=== PATIENT | female | born 1985 | race American Indian/Alaskan Native ===

== ENCOUNTER 2017-05-15 11:59 | Inpatient (IN) | payer MEDICAID ==
[2017-05-15] MEDS ORDERED: Sodium Chloride 0.9% 10 ML Syringe FLUSH PRN (12:52)
[2017-05-15] MEDS ORDERED: Sodium Chloride 0.9% 1,000 ML IV STA (12:52)
[2017-05-15] MEDS ORDERED: HYDROmorphone 0.5 MG/0.5 ML Syringe IVPUSH ONE (12:54)
[2017-05-15] MEDS ORDERED: Ondansetron 4 MG/2 ML SDV IVPUSH ONE (12:54)
--- NOTE | 2017-05-15 12:56 | EDM.PDOC ---
ED HPI GENERAL MEDICAL PROBLEM - General Chief Complaint: Abdominal Pain Stated Complaint: STOMACH PAINS Time Seen by Provider: 05/15/17 12:49 Source of Information: Reports: Patient, RN Notes Reviewed History Limitations: Reports: No Limitations - History of Present Illness INITIAL COMMENTS - FREE TEXT/NARRATIVE: 32-year-old female presents emergency department day complaint of abdominal pain , she states the pain started about 12 hours ago has been constant nature she still passing gas, denies any relationship to food does have a history of section 2 has not tried anything for the pain abdominal Pain Score (Numeric/FACES): 7 - Related Data Allergies Allergy/AdvReac Type Severity Reaction Status Date / Time amoxicillin Allergy Hives Verified 05/15/17 12:35 Home Meds: Home Meds NK [No Known Home Meds] 05/15/17 [History] Past Medical History - Past Surgical History Female Surgical History: Reports: Section Social & Family History - Tobacco Use Smoking Status *Q: Current Every Day Smoker Years of Tobacco use: 12 Packs/Tins Daily: 0.5 - Recreational Drug Use Recreational Drug Use: No ED ROS GENERAL - Review of Systems Review Of Systems: See Below Constitutional: Denies: Fever, Chills HEENT: Reports: No Symptoms Respiratory: Reports: No Symptoms Cardiovascular: Reports: No Symptoms GI/Abdominal: Reports: Abdominal Pain, Flatus, Nausea. Denies: Constipation, Diarrhea, Vomiting : Reports: No Symptoms Musculoskeletal: Reports: No Symptoms Skin: Reports: No Symptoms Neurological: Reports: No Symptoms ED EXAM, GI/ABD - Physical Exam Exam: See Below Exam Limited By: No Limitations General Appearance: Alert, WD/WN, No Apparent Distress Respiratory/Chest: No Respiratory Distress, Lungs Clear, Normal Breath Sounds, No Accessory Muscle Use Cardiovascular: Regular Rate, Rhythm, No Murmur GI/Abdominal Exam: Normal Bowel Sounds (I), Soft, Tender (Tender right lower quadrant). No: Guarding, Rigid, Rebound Course - Vital Signs Last Recorded V/S: Last Vital Signs Temp 97.9 F 05/15/17 12:37 Pulse 86 05/15/17 14:31 Resp 12 05/15/17 14:31 BP 97/56 L 05/15/17 14:31 Pulse Ox 96 05/15/17 14:31 - Orders/Labs/Meds Orders: Active Orders 24 hr Category Date Time Status Peripheral IV Care [RC] . DIRECTED Care 05/15/17 12:53 Active Abdomen Pelvis w Cont [CT] Urgent Exams 05/15/17 12:52 Taken Sodium Chloride 0.9% [Normal Saline] 1,000 ml Med 05/15/17 12:52 Active IV .BOLUS Sodium Chloride 0.9% [Saline Flush] Med 05/15/17 12:52 Active 10 ml FLUSH ASDIRECTED PRN cefOXitin [Mefoxin] 2 gm Med 05/15/17 14:46 Ordered Sodium Chloride 0.9% [Normal Saline] 50 ml IV ONETIME Peripheral IV Insertion Adult [OM.PC] Urgent Oth 05/15/17 12:52 Ordered Medication Orders Sodium Chloride (Normal Saline) 1,000 mls @ 500 mls/hr IV .BOLUS STA Stop: 05/15/17 14:51 Last Admin: 05/15/17 13:22 Dose: 500 mls/hr Sodium Chloride (Saline Flush) 10 ml FLUSH ASDIRECTED PRN PRN Reason: Keep Vein Open Last Admin: 05/15/17 13:25 Dose: 10 ml Labs: Laboratory Tests 05/15/17 05/15/17 05/15/17 Range/Units 13:04 13:04 13:04 WBC 13.3 H (4.5-11.0) K/uL RBC 4.75 (3.30-5.50) M/uL Hgb 14.0 (12.0-15.0) g/dL Hct 41.0 (36.0-48.0) % MCV 86 (80-98) fL MCH 30 (27-31) pg MCHC 34 (32-36) % Plt Count 317 (150-400) K/uL Neut % (Auto) 81 H (36-66) % Lymph % (Auto) 13 L (24-44) % [place] % (Auto) 4 (2-6) % Eos % (Auto) 1 L (2-4) % Baso % (Auto) 0 (0-1) % Sodium 140 (140-148) mmol/L Potassium 3.5 L (3.6-5.2) mmol/L Chloride 103 (100-108) mmol/L Carbon Dioxide 28 (21-32) mmol/L Anion Gap 12.5 (5.0-14.0) mmol/L BUN 11 (7-18) mg/dL Creatinine 0.8 (0.6-1.0) mg/dL Est Cr Clr Drug Dosing 87.99 mL/min Estimated GFR (MDRD) > 60 (>60) Glucose 90 (74-106) mg/dL Lactic Acid 1.0 (0.4-2.0) mmol/L Calcium 9.1 (8.5-10.1) mg/dL Total Bilirubin 1.2 H (0.2-1.0) mg/dL AST 23 (15-37) U/L ALT 34 (12-78) U/L Alkaline Phosphatase 101 (46-116) U/L Total Protein 7.2 (6.4-8.2) g/dL Albumin 3.5 (3.4-5.0) g/dL Globulin 3.7 H (2.3-3.5) g/dL Albumin/Globulin Ratio 1.0 L (1.2-2.2) Lipase 133 (73-393) U/L Urine Color Urine Appearance Urine pH (4.5-8.0) Ur Specific [place] (1.008-1.030) Urine Protein (NEGATIVE) mg/dL Urine Glucose (UA) (NEGATIVE) mg/dL Urine Ketones (NEGATIVE) mg/dL Urine Occult Blood (NEGATIVE) Urine Nitrite (NEGATIVE) Urine Bilirubin (NEGATIVE) Urine Urobilinogen (NORMAL) mg/dL Ur Leukocyte Esterase (NEGATIVE) Urine RBC (0-5) Urine WBC (0-5) Ur Epithelial Cells Amorphous Sediment Urine Bacteria Urine Mucus Urine HCG, Qual 05/15/17 05/15/17 Range/Units 13:17 13:17 WBC (4.5-11.0) K/uL RBC (3.30-5.50) M/uL Hgb (12.0-15.0) g/dL Hct (36.0-48.0) % MCV (80-98) fL MCH (27-31) pg MCHC (32-36) % Plt Count (150-400) K/uL Neut % (Auto) (36-66) % Lymph % (Auto) (24-44) % [place] % (Auto) (2-6) % Eos % (Auto) (2-4) % Baso % (Auto) (0-1) % Sodium (140-148) mmol/L Potassium (3.6-5.2) mmol/L Chloride (100-108) mmol/L Carbon Dioxide (21-32) mmol/L Anion Gap (5.0-14.0) mmol/L BUN (7-18) mg/dL Creatinine (0.6-1.0) mg/dL Est Cr Clr Drug Dosing mL/min Estimated GFR (MDRD) (>60) Glucose (74-106) mg/dL Lactic Acid (0.4-2.0) mmol/L Calcium (8.5-10.1) mg/dL Total Bilirubin (0.2-1.0) mg/dL AST (15-37) U/L ALT (12-78) U/L Alkaline Phosphatase (46-116) U/L Total Protein (6.4-8.2) g/dL Albumin (3.4-5.0) g/dL Globulin (2.3-3.5) g/dL Albumin/Globulin Ratio (1.2-2.2) Lipase (73-393) U/L Urine Color Yellow Urine Appearance Clear Urine pH 6.5 (4.5-8.0) Ur Specific [place] 1.020 (1.008-1.030) Urine Protein Negative (NEGATIVE) mg/dL Urine Glucose (UA) Normal (NEGATIVE) mg/dL Urine Ketones Negative (NEGATIVE) mg/dL Urine Occult Blood Moderate (NEGATIVE) Urine Nitrite Negative (NEGATIVE) Urine Bilirubin Negative (NEGATIVE) Urine Urobilinogen Normal (NORMAL) mg/dL Ur Leukocyte Esterase Small (NEGATIVE) Urine RBC 0-5 (0-5) Urine WBC 0-5 (0-5) Ur Epithelial Cells Many Amorphous Sediment Not seen Urine Bacteria Not seen Urine Mucus Rare Urine HCG, Qual Negative Meds: Medications Generic Name Dose Route Start Last Admin Trade Name Freq PRN Reason Stop Dose Admin Sodium Chloride 1,000 mls @ 500 mls/hr 05/15/17 12:52 05/15/17 13:22 Normal Saline IV 05/15/17 14:51 500 mls/hr .BOLUS STA Administration Sodium Chloride 10 ml 05/15/17 12:52 05/15/17 13:25 Saline Flush FLUSH 10 ml ASDIRECTED PRN Administration Keep Vein Open Discontinued Medications Generic Name Dose Route Start Last Admin Trade Name Freq PRN Reason Stop Dose Admin Hydromorphone HCl 0.5 mg 05/15/17 12:54 05/15/17 13:25 Dilaudid IVPUSH 05/15/17 12:55 0.5 mg ONETIME ONE Administration Sodium Chloride 80 mls @ 4 mls/sec 05/15/17 13:39 05/15/17 13:49 Normal Saline IV 05/15/17 13:40 4 mls/sec ASDIRECTED STA Administration Iopamidol 134 ml 05/15/17 13:39 05/15/17 13:49 Isovue-300 (61%) IV 05/15/17 13:40 150 ml . DIRECTED STA Administration Ondansetron HCl 4 mg 05/15/17 12:54 05/15/17 13:22 Zofran IVPUSH 05/15/17 12:55 4 mg ONETIME ONE Administration Departure - Departure Time of Disposition: 14:48 Disposition: Admitted As Inpatient 67 Condition: Good Clinical Impression: Appendicitis Qualifiers: Appendicitis type: acute appendicitis Acute appendicitis type: with localized peritonitis Qualified Code(s): K35.3 - Acute appendicitis with localized peritonitis - Discharge Information Referrals: PCP,None [Primary Care Provider] - Forms: ED Department Discharge - My Orders Last 24 Hours: My Active Orders 05/15/17 12:52 Abdomen Pelvis w Cont [CT] Urgent Sodium Chloride 0.9% [Normal Saline] 1,000 ml IV .BOLUS Sodium Chloride 0.9% [Saline Flush] 10 ml FLUSH ASDIRECTED PRN Peripheral IV Insertion Adult [OM.PC] Urgent 05/15/17 12:53 Peripheral IV Care [RC] . DIRECTED 05/15/17 14:46 cefOXitin [Mefoxin] 2 gm Sodium Chloride 0.9% [Normal Saline] 50 ml IV ONETIME - Assessment/Plan Last 24 Hours: My Active Orders 05/15/17 12:52 Abdomen Pelvis w Cont [CT] Urgent Sodium Chloride 0.9% [Normal Saline] 1,000 ml IV .BOLUS Sodium Chloride 0.9% [Saline Flush] 10 ml FLUSH ASDIRECTED PRN Peripheral IV Insertion Adult [OM.PC] Urgent 05/15/17 12:53 Peripheral IV Care [RC] . DIRECTED 05/15/17 14:46 cefOXitin [Mefoxin] 2 gm Sodium Chloride 0.9% [Normal Saline] 50 ml IV ONETIME Plan: Assessment Acuity = acute Site and laterality = acute appendicitis Etiology = unclear etiology Manifestations = right lower quadrant pain Location of injury = Home Lab values = WBC elevated at 13.3 consistent with a leukocytosis potassium low at 3.5 consistent hypokalemia bilirubin elevated 1.[address] scan described acute appendicitis with no free air Plan Called discussed case with Dr. Espitia general surgery he agreed to come and evaluate the patient emergency department for surgical intervention This note was dictated using [email or web address] voice recognition software please call with any questions on syntax or lou.
[2017-05-15] MEDS ORDERED: Sodium Chloride 0.9% 80 ML IV STA (13:39)
[2017-05-15] MEDS ORDERED: Iopamidol 612 MG/ML 150 ML Bottle IV STA (13:39)
[2017-05-15] MEDS ORDERED: cefOXitin 2 GM in Sodium Chloride 0.9% 50 ML IV ONE (14:46)
[2017-05-15] MEDS ORDERED: Bupivacaine 0.5%/EPINEPHrine 1:200,000 50 ML MDV ONE (15:14)
[2017-05-15] MEDS ORDERED: Dexamethasone 4 MG/ML SDV ONE (15:17)
[2017-05-15] MEDS ORDERED: Propofol 200 MG/20 ML SDV ONE (15:17)
[2017-05-15] MEDS ORDERED: Glycopyrrolate 0.2 MG/ML 5 ML MDV ONE (15:17)
[2017-05-15] MEDS ORDERED: Ondansetron 4 MG/2 ML SDV ONE (15:17)
[2017-05-15] MEDS ORDERED: Neostigmine Methylsulfate 1 MG/ML 5 ML Syringe ONE (15:17)
[2017-05-15] MEDS ORDERED: Succinylcholine 200 MG/10 ML MDV ONE (15:17)
[2017-05-15] MEDS ORDERED: Rocuronium 50 MG/5 ML Vial ONE (15:17)
[2017-05-15] MEDS ORDERED: Lactated Ringers 1,000 ML ONE (15:59)
[2017-05-15] MEDS ORDERED: HYDROmorphone/Normal Saline 15 MG/30 ML PCA IV SCH (16:00)
[2017-05-15] MEDS ORDERED: hydrOXYzine HCl 100 MG/2 ML SDV IM ONE (16:03)
[2017-05-15] MEDS ORDERED: HYDROmorphone/Normal Saline 15 MG/30 ML PCA IV ONE (16:05)
[2017-05-15] MEDS ORDERED: Sugammadex Sodium 200 MG/2 ML VIAL ONE (16:29)
[2017-05-15] MEDS ORDERED: Meperidine PF 100 MG/ML Syringe IM ONE (16:51)
[2017-05-15] MEDS ORDERED: Metoclopramide 10 MG/2 ML SDV IVPUSH PRN (18:51)
[2017-05-15] MEDS ORDERED: Ondansetron 4 MG/2 ML SDV IVPUSH PRN (18:51)
[2017-05-15] MEDS ORDERED: hydrOXYzine HCl 25 MG Tab PO PRN (18:53)
[2017-05-15] MEDS ORDERED: hydrOXYzine HCl 100 MG/2 ML SDV IM PRN (18:53)
[2017-05-15] MEDS ORDERED: Naloxone 0.4 MG/ML SDV IV PRN (18:58)
[2017-05-15] MEDS ORDERED: Dextrose 5%-Lactated Ringers 1,000 ML IV SCH (19:00)
[2017-05-15] MEDS: Pantoprazole 40 MG Vial IV SCH (20:21)
[2017-05-15] MEDS: cefOXitin 2 GM in Sodium Chloride 0.9% 50 ML IV SCH (20:21)
[2017-05-16] MEDS: cefOXitin 2 GM in Sodium Chloride 0.9% 50 ML IV SCH ×4 (02:48→20:49)
--- NOTE | 2017-05-16 07:09 | PCM.SURGPN ---
- General Info Date of Service: 05/16/17 Date of Surgery/Procedure: 05/15/17 POD#: 1 Post-Op Diagnosis: acute appendicitis with periocolonic and periapendiceal abscess Functional Status: Reports: Pain Controlled, Tolerating Diet (ice chips only), Ambulating, Urinating, Incentive Spirometry - Review of Systems General: Reports: No Symptoms HEENT: Reports: Contact Lenses Pulmonary: Reports: No Symptoms Cardiovascular: Reports: No Symptoms Gastrointestinal: Reports: Abdominal Pain (incisional -08/09 with RESIDENT PROGRAMS ASSISTANT) Genitourinary: Reports: No Symptoms Musculoskeletal: Reports: No Symptoms Skin: Reports: No Symptoms Neurological: Reports: No Symptoms Psychiatric: Reports: No Symptoms - Patient Data Vitals - Most Recent: Last Vital Signs Temp 98.6 F 05/16/17 02:50 Pulse 77 05/16/17 02:50 Resp 14 05/16/17 02:50 BP 99/54 L 05/16/17 02:50 Pulse Ox 93 L 05/16/17 02:50 Weight - Most Recent: 200 lb I&O - Last 24 Hours: Intake & Output 05/15/17 05/16/17 05/16/17 22:59 06:59 14:59 Intake Total 1175 1440 Output Total 350 570 Balance 825 870 Med Orders - Current: Current Medications Hydromorphone HCl (Dilaudid Print Finishing Worker 15 Mg In Ns 30 Ml) 15 mg IV ASDIRECTED [facility] PRN Reason: Protocol Last Admin: 05/16/17 06:46 Dose: 15 mg Hydroxyzine HCl (Vistaril) 100 mg IM Q4H PRN PRN Reason: PAIN Hydroxyzine HCl (Atarax) 100 mg PO Q4H PRN PRN Reason: PAIN Dextrose/Lactated Ringer's (Dextrose 5%-Lactated Ringers) 1,000 mls @ 175 mls/ hr IV ASDIRECTED [facility] Last Admin: 05/16/17 01:07 Dose: 175 mls/hr Aztreonam 1 gm/ Sodium (Chloride) 50 mls @ 100 mls/hr IV Q8H [facility] Last Admin: 05/16/17 02:49 Dose: 100 mls/hr Cefoxitin Sodium 2 gm/ Sodium (Chloride) 50 mls @ 100 mls/hr IV Q6H [facility] Last Admin: 05/16/17 02:48 Dose: 100 mls/hr Metoclopramide HCl (Reglan) 10 mg IVPUSH Q6H PRN PRN Reason: NAUSEA Naloxone HCl (Narcan) 0.1 mg IV ASDIRECTED PRN PRN Reason: decreased respiratory rate Ondansetron HCl (Zofran) 4 mg IVPUSH Q4H PRN PRN Reason: NAUSEA Pantoprazole Sodium (Protonix Iv) 40 mg IV BEDTIME [facility] Last Admin: 05/15/17 20:21 Dose: 40 mg Sodium Chloride (Saline Flush) 10 ml FLUSH ASDIRECTED PRN PRN Reason: Keep Vein Open Last Admin: 05/15/17 13:25 Dose: 10 ml Discontinued Medications Bupivacaine HCl/Epinephrine Bitart (Marcaine 0.5%/Epinephrine 1:200,000) Confirm Administered Dose 50 ml .ROUTE .STK-MED ONE Stop: 05/15/17 15:15 Last Admin: 05/15/17 16:16 Dose: 20 ml Dexamethasone (Dexamethasone) Confirm Administered Dose 4 mg .ROUTE .STK-MED ONE Stop: 05/15/17 15:18 Fentanyl Citrate (Fentanyl) Confirm Administered Dose 500 mcg .ROUTE .STK-MED ONE Stop: 05/15/17 15:18 Glycopyrrolate (Robinul) Confirm Administered Dose 1 mg .ROUTE .STK-MED ONE Stop: 05/15/17 15:18 Hydromorphone HCl (Dilaudid) 0.5 mg IVPUSH ONETIME ONE Stop: 05/15/17 12:55 Last Admin: 05/15/17 13:25 Dose: 0.5 mg Hydromorphone HCl (Dilaudid Print Finishing Worker 15 Mg In Ns 30 Ml) Confirm Administered Dose 15 mg IV .STK-MED ONE Stop: 05/15/17 16:06 Last Admin: 05/15/17 16:41 Dose: 15 mg Hydroxyzine HCl (Vistaril) 100 mg IM ONETIME ONE Stop: 05/15/17 16:04 Last Admin: 05/15/17 16:41 Dose: 100 mg Sodium Chloride (Normal Saline) 1,000 mls @ 500 mls/hr IV .BOLUS STA Stop: 05/15/17 14:51 Last Admin: 05/15/17 13:22 Dose: 500 mls/hr Sodium Chloride (Normal Saline) 80 mls @ 4 mls/sec IV ASDIRECTED STA Stop: 05/15/17 13:40 Last Admin: 05/15/17 13:49 Dose: 4 mls/sec Cefoxitin Sodium 2 gm/ Sodium (Chloride) 50 mls @ 100 mls/hr IV ONETIME ONE Stop: 05/15/17 15:15 Last Admin: 05/15/17 15:02 Dose: 100 mls/hr Lactated Ringer's (Ringers, Lactated) Confirm Administered Dose 1,000 mls @ as directed .ROUTE .STK-MED ONE Stop: 05/15/17 16:00 Iopamidol (Isovue-300 (61%)) 134 ml IV . DIRECTED STA Stop: 05/15/17 13:40 Last Admin: 05/15/17 13:49 Dose: 150 ml Meperidine HCl (Demerol) 100 mg IM ONETIME ONE Stop: 05/15/17 16:52 Last Admin: 05/15/17 16:58 Dose: 100 mg Neostigmine Methylsulfate (Neostigmine) Confirm Administered Dose 5 mg .ROUTE .STK-MED ONE Stop: 05/15/17 15:18 Ondansetron HCl (Zofran) 4 mg IVPUSH ONETIME ONE Stop: 05/15/17 12:55 Last Admin: 05/15/17 13:22 Dose: 4 mg Ondansetron HCl (Zofran) Confirm Administered Dose 4 mg .ROUTE .STK-MED ONE Stop: 05/15/17 15:18 Propofol (Diprivan 20 Ml) Confirm Administered Dose 200 mg .ROUTE .STK-MED ONE Stop: 05/15/17 15:18 Rocuronium Gunter (Zemuron) Confirm Administered Dose 50 mg .ROUTE .STK-MED ONE Stop: 05/15/17 15:18 Succinylcholine Chloride (Quelicin) Confirm Administered Dose 200 mg .ROUTE .STK -MED ONE Stop: 05/15/17 15:18 - Exam Wound/Incisions: Dressing Dry and Intact, Drainage (20mL serosanguinous fluid out of MOSES) Quality Assessment: Supplemental Oxygen General: Alert, Oriented, No Acute Distress Lungs: Clear to Auscultation, Normal Respiratory Effort Cardiovascular: Regular Rate, Regular Rhythm GI/Abdominal Exam: Normal Bowel Sounds, Tender (near incision) Skin: Warm, Intact - Problem List Review Problem List Initiated/Reviewed/Updated: Yes - My Orders Last 24 Hours: Active Orders 24 hr Category Date Time Status Patient Status [ADT] Routine ADT 05/15/17 16:40 Active Ambulate [RC] QID Care 05/15/17 18:02 Active Communication Order [RC] ROUTINE Care 05/16/17 06:59 Ordered DC Daniels Catheter [Urinary Catheter Removal] [RC] Per Care 05/16/17 06:58 Ordered Unit Routine Insert Urinary Catheter [OM.PC] Q24H Care 05/15/17 18:15 Ordered Intake and Output [RC] ASDIRECTED Care 05/15/17 18:02 Active Overnight Pulse Oximetry [RC] Click to Edit Care 05/15/17 18:05 Active RT Incentive Spirometry [RC] ASDIRECTED Care 05/15/17 18:02 Active Turn, Cough, Deep Breathe [RC] .PRN Care 05/15/17 18:02 Active Up to Chair [RC] QID Care 05/15/17 18:02 Active Urinary Catheter Assessment [RC] Q12H Care 05/15/17 18:05 Active Nothing per Oral Now Diet [DIET] Diet 05/16/17 Breakfast Active Aztreonam [Azactam] 1 gm Med 05/15/17 19:00 Active Sodium Chloride 0.9% [Normal Saline] 50 ml IV Q8H Dextrose 5%-Lactated Ringers 1,000 ml Med 05/15/17 19:00 Active IV ASDIRECTED Dextrose 5%-Lactated Ringers 1,000 ml Med 05/16/17 06:58 Ordered IV ASDIRECTED Metoclopramide [Reglan] Med 05/15/17 18:51 Active 10 mg IVPUSH Q6H PRN Naloxone [Narcan] Med 05/15/17 18:58 Active 0.1 mg IV ASDIRECTED PRN Ondansetron [Zofran] Med 05/15/17 18:51 Active 4 mg IVPUSH Q4H PRN Pantoprazole [ProTONIX IV] Med 05/15/17 21:00 Active 40 mg IV BEDTIME cefOXitin [Mefoxin] 2 gm Med 05/15/17 20:00 Active Sodium Chloride 0.9% [Normal Saline] 50 ml IV Q6H hydrOXYzine HCl [Atarax] Med 05/15/17 18:53 Active 100 mg PO Q4H PRN hydrOXYzine HCl [Vistaril] Med 05/15/17 18:53 Active 100 mg IM Q4H PRN Pulse Oximetry Continuous Monitoring [OM.PC] Routine Oth 05/15/17 18:02 Ordered Sequential Compression Device [OM.PC] Routine Oth 05/15/17 18:02 Ordered Medication Orders Hydromorphone HCl (Dilaudid Print Finishing Worker 15 Mg In Ns 30 Ml) 15 mg IV ASDIRECTED [facility] PRN Reason: Protocol Last Admin: 05/16/17 06:46 Dose: 15 mg Hydroxyzine HCl (Vistaril) 100 mg IM Q4H PRN PRN Reason: PAIN Hydroxyzine HCl (Atarax) 100 mg PO Q4H PRN PRN Reason: PAIN Dextrose/Lactated Ringer's (Dextrose 5%-Lactated Ringers) 1,000 mls @ 175 mls/ hr IV ASDIRECTED [facility] Last Admin: 05/16/17 01:07 Dose: 175 mls/hr Aztreonam 1 gm/ Sodium (Chloride) 50 mls @ 100 mls/hr IV Q8H [facility] Last Admin: 05/16/17 02:49 Dose: 100 mls/hr Admin: 05/15/17 19:44 Dose: 100 mls/hr Cefoxitin Sodium 2 gm/ Sodium (Chloride) 50 mls @ 100 mls/hr IV Q6H [facility] Last Admin: 05/16/17 02:48 Dose: 100 mls/hr Admin: 05/15/17 20:21 Dose: 100 mls/hr Metoclopramide HCl (Reglan) 10 mg IVPUSH Q6H PRN PRN Reason: NAUSEA Naloxone HCl (Narcan) 0.1 mg IV ASDIRECTED PRN PRN Reason: decreased respiratory rate Ondansetron HCl (Zofran) 4 mg IVPUSH Q4H PRN PRN Reason: NAUSEA Pantoprazole Sodium (Protonix Iv) 40 mg IV BEDTIME [facility] Last Admin: 05/15/17 20:21 Dose: 40 mg Sodium Chloride (Saline Flush) 10 ml FLUSH ASDIRECTED PRN PRN Reason: Keep Vein Open Last Admin: 05/15/17 13:25 Dose: 10 ml - Assessment Assessment (Free Text/Narrative):: Pura is post-op day 1 s/p lap appendectomy for acute appendicitis with periocolonic and periappendiceal abscess. Fluid showed gram pos cocci and gram neg rods; cultures pending. Pt doing well with 2-4/10 left periumbilical abdominal pain (seems incisional in nature), well-controlled with RESIDENT PROGRAMS ASSISTANT. Pt has been up and ambulating. 900 out of Daniels; will be removed today. 20mL serosanguinous drainage out of MOSES. - Plan Plan (Free Text/Narrative):: Infection: F/u cultures. Treat abscess with cefoxitin and azactam. Pain: Continue controlling pain with RESIDENT PROGRAMS ASSISTANT. Daniels: Take Daniels out. Ambulate: Up at least 6 times today. Lungs: Incentive spirometry 10 times/hr every hr. Continue supplemental oxygen as needed.
[2017-05-16] MEDS ORDERED: HYDROmorphone/Normal Saline 15 MG/30 ML PCA IV PRN (07:12)
[2017-05-16] MEDS: Dextrose 5%-Lactated Ringers 1,000 ML IV SCH ×2 (07:59→20:50)
[2017-05-16] MEDS: Aztreonam/Dextrose-Water 1 GM in Premix Bag 1 BAG IV SCH ×2 (10:58→17:23)
[2017-05-16] MEDS: diphenhydrAMINE 25 MG Cap PO PRN ×2 (14:12→14:13)
[2017-05-16] MEDS: Pantoprazole 40 MG Vial IV SCH (20:45)
[2017-05-17] MEDS: Aztreonam/Dextrose-Water 1 GM in Premix Bag 1 BAG IV SCH ×2 (01:45→10:51)
[2017-05-17] MEDS: cefOXitin 2 GM in Sodium Chloride 0.9% 50 ML IV SCH ×2 (01:45→09:51)
[2017-05-17] MEDS ORDERED: Acetaminophen/HYDROcodone 325-5 MG Tab PO PRN (07:46)
[2017-05-17] MEDS ORDERED: Magnesium Hydroxide 400 MG/5 ML Susp 30 ML Cup PO PRN (07:47)
--- NOTE | 2017-05-18 15:59 | DISCH ---
FINAL DIAGNOSES: 1. Acute appendicitis with inflammation extending on cecal base. 2. Pericolonic abscess. OPERATIVE PROCEDURES: Diagnostic laparoscopy with; 1. Partial cecectomy including removal of overlying appendix. 2. Drainage of pericolonic abscess. HOSPITAL COURSE: This is a 32-year-old female presenting with a picture of acute appendicitis. After preoperative evaluation and discussion, she wished to proceed with an appendectomy. This was done on the date of hospitalization. At the time of the laparoscopic examination, the patient was noted to have quite a bit of inflammation extending onto the cecum with a prececal or pericolonic abscess present. Cultures of this were obtained, and the area drained. A portion of the cecum was then removed along with the overlying appendix. Postoperatively, she has had no significant problems. She is passing gas at this point and tolerating full liquid diet with regular diet. DISCHARGE MEDICATIONS: Switch her over to [place] 5/325 mg 1 or 2 tabs q.4 hours p.r.n. pain, #40 to be written. FOLLOWUP: With Dr. Espitia in [facility] on 05/25/2017.
--- NOTE | 2017-05-18 16:20 | OR ---
DATE OF PROCEDURE: 05/15/2017 PREOPERATIVE DIAGNOSIS: Acute appendicitis. POSTOPERATIVE DIAGNOSES: 1. Acute appendicitis with an inflammatory extension onto cecal base. 2. Pericolonic abscess. OPERATIVE PROCEDURE: Diagnostic laparoscopy with: 1. Partial cecectomy including excision of overlying appendix (21949). Drainage of pericolonic abscess (87239). ANESTHESIA: General. INDICATION FOR PROCEDURE: This 32-year-old female presenting with a picture of an acute appendicitis. After preoperative evaluation and discussion, she wished to proceed with an appendectomy. Potential risks of the procedure including bleeding, infection, possible need to convert to an open approach, problems such as leaks from the staple lines, and possibility of needing any more extensive procedure based on operative findings along with the remote possibility of cardiopulmonary, septic, or hemorrhagic complications leading to were discussed, and the patient wishes to proceed. DESCRIPTION OF PROCEDURE: The patient was taken to the operating room and placed in a supine position. After general endotracheal anesthesia was induced, a Daniels catheter was inserted and the abdomen was prepped and draped. Three fingerbreadths superior and to the left of the umbilicus, a transverse incision was made and peritoneal cavity entered under direct vision with an Optiview trocar and peritoneal cavity was inflated to 15 mmHg pressure with CO2 and laparoscope was reinserted. No underlying trocar insertion site injuries were seen. Following this, 12 mm trocars were placed in a left lower quadrant as well as right upper quadrant and general exploration undertaken. The patient was noted to have a generalized inflammatory response in the area adjacent to the cecum. As this was pulled back a pericolonic abscess extending along the cecum was slightly upward along the ascending colon laterally was identified. This was evacuated and cultures were obtained. As one pulled back the appendix, it became evident that the inflammatory process had extended quite a bit of perhaps a centimeter and a half onto the cecum and at that point, we decided to proceed with a partial cecectomy, which would include removal of overlying appendix as this would provide a more satisfactory staple line. The mesoappendix was then divided using Harmonic scalpel down to the level of the junction of the appendix and cecum. This was then retracted upward and the cecum then excised roughly 1.5 cm away from the appendix and that specimen delivered from the field through the left lower quadrant trocar site. Care was made to be sure that we were not impinging on the course of the ileocecal valve with the staple line. At that point, no further problems were noted. The staple line along with division of the mesentery were then reinforced with fibrin sealant through a 5 mm trocar placed in the right flank, a 10-Slov[place] round Kody- Herrera drain was placed adjacent to the cecectomy site and from there into the pelvis. The trocars were then sequentially removed. The fascia at the 12-mm sites were closed with 0 Vicryl stitch. The appendix was delivered through left lower quadrant trocar without any touching of the soft tissues in this passage. Given this, the skin was closed as were the other incisions with a 4-0 Vicryl skin stitch. Dressing was applied. The patient was taken to the recovery room in satisfactory condition. There were no evident complications. Lokesh Espitia MD /[id number]
== END 2017-05-17 11:11 | disposition home or self-care (01) | DRG 330 ==
LOC: JP.ED 11:59 → JP.SDS 14:56 → JP.MS 16:40
PROVIDERS: ADMIT Surgery; ATTEND Surgery
PROC: 0DBH0ZZ Excision of Cecum, Open Approach (ICD-10-PCS; principal; 2017-05-15)
PROC: 0D9 Gastrointestinal System, Drainage (ICD-10-PCS; principal; 2017-05-15)
PROC: 0DTJ4ZZ Resection of Appendix, Percutaneous Endoscopic Approach (ICD-10-PCS; principal; 2017-05-15)
DX: K35.3 Acute appendicitis with localized peritonitis (principal); K63.0 Abscess of intestine; F17.210 Nicotine dependence, cigarettes, uncomplicated; Z88.1 Allergy status to other antibiotic agents
CPT/HCPCS: 36415; 74177; 80053; 81001; 81025; 83605; 83690; 85025; 87070; 87075; 87077; 87186; 87205; 88304; 94762; 96361; 96365; 96375; 99284; 99285-25; A9270-GY; C9113; C9399; J0330; J0694; J1100; J1170; J2175; J2405; J2704; J2710; J3010; J3410; J3490; J7030; J7042; J7050; J7120; S0073

== ENCOUNTER 2017-05-31 17:33 | Emergency (ER) | payer SELFPAY ==
--- NOTE | 2017-05-31 18:02 | EDM.PDOC ---
ED HPI GENERAL MEDICAL PROBLEM - General Chief Complaint: Upper Extremity Injury/Pain Stated Complaint: HAND SWOLLEN FROM IV Time Seen by Provider: 05/31/17 18:01 Source of Information: Reports: Patient History Limitations: Reports: No Limitations - History of Present Illness INITIAL COMMENTS - FREE TEXT/NARRATIVE: 32-year-old female who had an appendectomy just over 2 weeks ago had a swollen area on the top of her left hand where the IV was placed. The swelling has gone down but she still has a fairly hard firm nodular area that is tender, but her main concern is that the pain over the last 2 days is starting to extend up the extensor surface over forearm and there is some slight redness developed. No fevers or chills. Onset: Gradual (Over the past 2-3 days) Location: Reports: Upper Extremity, Left Severity: Mild Associated Symptoms: Denies: Fever/Chills, Nausea/Vomiting Left Hand Pain Score (Numeric/FACES): 6 - Related Data Allergies Allergy/AdvReac Type Severity Reaction Status Date / Time amoxicillin Allergy Hives Verified 05/15/17 12:35 Home Meds: Home Meds Ciprofloxacin HCl [Cipro] 05/31/17 [History] Past Medical History - Past Surgical History GI Surgical History: Reports: Appendectomy Female Surgical History: Reports: Section Social & Family History - Tobacco Use Smoking Status *Q: Light Tobacco Smoker Years of Tobacco use: 5 Packs/Tins Daily: 0.1 - Caffeine Use Caffeine Use: Reports: Coffee, Soda - Alcohol Use Days Per Week of Alcohol Use: 2 Number of Drinks Per Day: 3 Total Drinks Per Week: 6 - Recreational Drug Use Recreational Drug Use: No Review of Systems - Review of Systems Review Of Systems: See Below Constitutional: Denies: Fever Respiratory: Reports: No Symptoms Cardiovascular: Reports: No Symptoms GI/Abdominal: Reports: No Symptoms Skin: Reports: Erythema Neurological: Reports: No Symptoms ED EXAM, GENERAL - Physical Exam Exam: See Below Exam Limited By: No Limitations General Appearance: Alert, No Apparent Distress Respiratory/Chest: No Respiratory Distress Extremities: Other (Exam is otherwise limited to the left arm. She does have a tender nodular area on the back of the hand and also some subtle redness extending up the extensor surface of the forearm in a lymphangitic type pattern. It is not warm to touch.) Course - Vital Signs Last Recorded V/S: Last Vital Signs Temp 97.6 F 05/31/17 17:48 Pulse 85 05/31/17 17:48 Resp 16 05/31/17 17:48 BP 137/85 05/31/17 17:48 Pulse Ox 99 05/31/17 17:48 - Re-Assessments/Exams Free Text/Narrative Re-Assessment/Exam: 05/31/17 18:13 This patient has some lingering localized phlebitis but appears she may be developing some early lymphangitis which probably should be covered with an antibiotic. She was started on cephalexin 500 mg 3 times a day for the next 7 days, encouraged to put moist warm compresses over the area and can return if worsening. Ibuprofen or naproxen should be beneficial. Departure - Departure Time of Disposition: 18:20 Disposition: Home, Self-Care 01 Condition: Good Clinical Impression: Acute lymphangitis of extremity - Discharge Information Instructions: Phlebitis, [id number] Referrals: PCP,None [Primary Care Provider] - Forms: ED Department Discharge Care Plan Goals: Moist warm compresses to the area should help, ibuprofen or naproxen will also be very helpful. Take antibiotic 3 times a day until gone, and recheck in 2-3 days if not improving satisfactorily. Return sooner if worsening such as fever or increased redness despite treatment
== END 2017-05-31 18:20 | disposition home or self-care (01) ==
LOC: JP.ED 17:33
DX: L03.91 Acute lymphangitis, unspecified (principal); M79.89 Other specified soft tissue disorders; F17.210 Nicotine dependence, cigarettes, uncomplicated; Z88.0 Allergy status to penicillin; Z90.49 Acquired absence of other specified parts of digestive tract
CPT/HCPCS: 99283